=== PATIENT | male | born 1965 | race Caucasian/White ===

== ENCOUNTER 2019-06-01 05:55 | Emergency (ER) | payer OTHER ==
[2019-06-01 06:31] LABS: ADD MAN DIFF? NO
[2019-06-01] MEDS: ONDANSETRON 4 MG INJ IV (06:33)
[2019-06-01] MEDS: SOD CHLORIDE 0.9% 1,000 ML IV (06:33)
[2019-06-01] MEDS: morphine 4 MG/ML VIAL IV (06:33)
[2019-06-01 06:35] LABS: BASOPHIL # 0.1 10^3/ul (0.0-0.1); BASOPHILS % 0.8 % (0.0-2.0); EOSINOPHILS # 0.3 10^3/ul (0.0-0.5); EOSINOPHILS % 2.6 % (0.0-7.0); HEMATOCRIT 43.3 % (42.0-52.0); HEMOGLOBIN 14.5 g/dl (14.0-18.0); LYMPHOCYTES # 3.4 10^3/ul (0.8-2.9); LYMPHOCYTES % 25.9 % (15.0-51.0); MEAN CORPUSCULAR HEMOGLOBIN 29.6 pg (29.0-33.0); MEAN CORPUSCULAR HGB CONC 33.5 g/dl (32.0-37.0); MEAN CORPUSCULAR VOLUME 88.4 fl (82.0-101.0); MONOCYTES % 7.7 % (0.0-11.0); NEUTROPHIL # 8.2 10^3/ul (1.6-7.5); NEUTROPHILS % 62.2 % (39.0-77.0); PLATELET COUNT 315 10^3/UL (140-415); RED CELL DISTRIBUTION WIDTH 12.7 % (11.5-14.5)
[2019-06-01 06:35] LABS: WHITE BLOOD COUNT 13.2 10^3/ul (4.8-10.8)
[2019-06-01 06:52] LABS: INR 0.94; PROTIME 12.7 Sec (11.9-14.9)
[2019-06-01 06:53] LABS: PARTIAL THROMBOPLASTIN TIME 24.1 Sec (23.0-35.0)
[2019-06-01 06:55] LABS: ANION GAP 10 (5-13); BLOOD UREA NITROGEN 18 mg/dl (7-20); CARBON DIOXIDE 23 mmol/L (21-31); CHLORIDE 107 mmol/L (97-110); CREATININE 1.02 mg/dl (0.61-1.24); Estimated GFR > 60 mL/min (>60); GLUCOSE 149 mg/dl (70-220); POTASSIUM 3.9 mmol/L (3.5-5.1); SODIUM 140 mmol/L (135-144)
[2019-06-01 07:05] LABS: TROPONIN-I < 0.012 ng/ml (0.000-0.120)
[2019-06-01] MEDS: SOD CHLORIDE 0.9% 100 ML (07:42)
[2019-06-01] MEDS: IOHEXOL 100 ML (07:42)
[2019-06-01] MEDS: IOHEXOL 350MG/ML 50 ML BTL (07:42)
[2019-06-01] MEDS: BELLADONNA/PHENOBARBITAL TAB PO (08:15)
[2019-06-01] MEDS: FAMOTIDINE 20 MG TAB PO (08:15)
[2019-06-01] MEDS: LIDOCAINE/MYLANTA 40 ML BTL PO (08:15)
[2019-06-01 10:08] LABS: TROPONIN-I < 0.012 ng/ml (0.000-0.120)
== END 2019-06-01 10:55 | disposition short-term general hospital (02) ==
LOC: E/R 05:55
DX: I24.9 Acute ischemic heart disease, unspecified (principal); Z79.84 Long term (current) use of oral hypoglycemic drugs
CPT/HCPCS: 36415; 71045; 71275; 80048; 84484; 85025; 85610; 85730; 93005; 96361; 96374; 96375; 99285-25